=== PATIENT | female | born 1995 ===

== ENCOUNTER 2016-12-06 19:29 | Emergency (ER) | payer MEDICAID, OTHER ==
[2016-12-06 19:36] VITALS: BP 115/62; PULSE 73; RESP 18; TEMP 98; O2SAT 99
[2016-12-06] MEDS ORDERED: TDAP Vaccine 0.5 mL Syr IM ONE (19:41)
--- NOTE | 2016-12-06 19:55 | ED PDOC ---
Lower Extremity Pain/Injury Time Seen by Provider: 12/06/16 19:35 Chief Complaint (Nursing): Lower Extremity Problem/Injury Chief Complaint (Provider): Lower Extremity Problem/Injury History Per: Patient History/Exam Limitations: no limitations Onset/Duration Of Symptoms: Days (2x months) Current Symptoms Are (Timing): Still Present Severity: Moderate Additional Complaint(s): 21 year old female with no pertinent medical history presents to the ED with complaints of right lower extremity injury. She reports that 2x months she stepped on broken glassware at her home, and she now has pain in her right foot in the area where the foreign body is. She denies having any fevers and chills. Patient's tetanus vaccination is not up to date. PMD: not provided - Ankle/Foot Description Of Injury: Other (patient stepped on broken glass) Past Medical History Reviewed: Historical Data, Nursing Documentation, Vital Signs Vital Signs: Last Vital Signs Temp 98 F 12/06/16 19:35 Pulse 73 12/06/16 19:35 Resp 18 12/06/16 19:35 BP 115/62 12/06/16 19:35 Pulse Ox 99 12/06/16 19:35 - Medical History PMH: No Chronic Diseases - Family History Family History: States: No Known Family Hx - Social History Alcohol: None Drugs: Denies - Immunization History Hx Tetanus Toxoid Vaccination: No - Home Medications Home Medications: Ambulatory Orders Medication Instructions Recorded Cyclobenzaprine [Cyclobenzaprine 10 mg PO BID #14 tab 05/06/16 HCl] Ibuprofen [Motrin] 400 mg PO Q6 #30 tab 05/06/16 - Allergies Allergies/Adverse Reactions: Allergies Allergy/AdvReac Type Severity Reaction Status Date / Time No Known Allergies Allergy Verified 12/05/14 16:40 Review of Systems ROS Statement: Except As Marked, All Systems Reviewed And Found Negative Constitutional: Negative for: Fever, Chills Musculoskeletal: Positive for: Foot Pain (right foot pain) Physical Exam - Reviewed Nursing Documentation Reviewed: Yes Vital Signs Reviewed: Yes - Physical Exam Appears: Positive for: Well, Non-toxic, No Acute Distress Head Exam: Positive for: ATRAUMATIC, NORMOCEPHALIC Skin: Positive for: Normal Color, Warm, Dry Cardiovascular/Chest: Positive for: Regular Rate, Rhythm Respiratory: Positive for: Normal Breath Sounds. Negative for: Respiratory Distress Extremity: Positive for: Normal ROM, Other (1cm in diameter hardened region on plantar surface and lateral aspect on right foot. no surrounding erythema, no signs of infection) Neurologic/Psych: Positive for: Alert, Oriented (3x) - ECG O2 Sat by Pulse Oximetry: 99 (RA) Pulse Ox Interpretation: Normal - Progress ED Course And Treament: xry of foot: no foreign object body; no fx of foot noted Medical Decision Making Medical Decision Makin:35 Initial impression: 21 year old female with right foot pain. Initial impression: * boostrix inj .5ml IM * XRay foot right 3 views * reevaluation Scribe Attestation: Documented by Magda Mccartney, acting as a scribe for Pacheco Olivera PA-C. Provider Scribe Attestation: All medical record entries made by the Scribe were at my direction and personally dictated by me. I have reviewed the chart and agree that the record accurately reflects my personal performance of the history, physical exam, medical decision making, and the department course for this patient. I have also personally directed, reviewed, and agree with the discharge instructions and disposition. Disposition - Clinical Impression Clinical Impression: Callus - Patient ED Disposition Is Patient to be Admitted: No - Disposition Referrals: Podiatry Clinic [Outside] Disposition: Routine/Home Disposition Time: 20:58 Condition: FAIR Instructions: Foot Contusion (ED)
--- NOTE | 2016-12-07 10:21 | RAD ---
PROCEDURE: Right Foot Radiographs. HISTORY: R/O FOREIGN BODY COMPARISON: None. FINDINGS: BONES: Normal. No fracture. JOINTS: Normal. SOFT TISSUES: Normal. OTHER FINDINGS: Possible small laceration of the plantar aspect of the forefoot. IMPRESSION: Normal right foot radiographs. No radiopaque foreign body identified. Direct visualization recommended.
== END 2016-12-06 21:17 | disposition home or self-care (01) ==
LOC: H.ER 19:29
DX: L84 Corns and callosities (principal)

== ENCOUNTER 2017-03-28 14:25 | Emergency (ER) | payer MEDICAID ==
[2017-03-28 14:35] VITALS: BP 116/74; PULSE 84; RESP 16; TEMP 98.4; O2SAT 100
--- NOTE | 2017-03-28 15:17 | ED PDOC ---
Lower Extremity Pain/Injury Time Seen by Provider: 03/28/17 15:01 Chief Complaint (Nursing): Lower Extremity Problem/Injury Chief Complaint (Provider): foot pain History Per: Patient Additional Complaint(s): 21-year-old female presents with pain to right foot ongoing for several months. Patient is not sure if she has foreign body to bottom of foot. Patient denies fever or chills, she denies any drainage from the affected area. Past Medical History Reviewed: Historical Data, Nursing Documentation, Vital Signs Vital Signs: Last Vital Signs Temp 98.4 F 03/28/17 14:30 Pulse 84 03/28/17 14:30 Resp 16 03/28/17 14:30 BP 116/74 03/28/17 14:30 Pulse Ox 100 03/28/17 14:30 - Medical History PMH: No Chronic Diseases - Surgical History Surgical History: No Surg Hx - Family History Family History: States: No Known Family Hx - Living Arrangements Living Arrangements: With Family - Social History Current smoker - smoking cessation education provided: Yes Alcohol: Social Drugs: Cannabis - Home Medications Home Medications: Ambulatory Orders Medication Instructions Recorded Cyclobenzaprine [Cyclobenzaprine 10 mg PO BID #14 tab 05/06/16 HCl] Ibuprofen [Motrin] 400 mg PO Q6 #30 tab 05/06/16 - Allergies Allergies/Adverse Reactions: Allergies Allergy/AdvReac Type Severity Reaction Status Date / Time No Known Allergies Allergy Verified 12/05/14 16:40 Wells Criteria for PE - Wells Criteria for Pulmonary Embolism Clinical Signs and Symptoms of DVT: No P.E is #1 Diagnosis, or Equally Likely: No Heart Rate >100: No Immobilization at least 3 days;Surgery previous 4 weeks: No Previous, objectively diagnosed PE or DVT: No Hemoptysis: No Malignancy w/treatment within 6 months, or palliative: No Total Score: 0 Review of Systems ROS Statement: Except As Marked, All Systems Reviewed And Found Negative Constitutional: Negative for: Fever Musculoskeletal: Positive for: Other (right plantar pain for several months) Physical Exam - Reviewed Nursing Documentation Reviewed: Yes Vital Signs Reviewed: Yes - Physical Exam Appears: Positive for: Well, Non-toxic, No Acute Distress Skin: Negative for: Rash Eye Exam: Positive for: Normal appearance Extremity: Positive for: Other (Multiple calluses noted to plantar aspect of right foot, tenderness to palpation overlying area calloused skin, no palpable foreign body, no cellulitis or wound infection, normal distal sensation) Neurologic/Psych: Positive for: Alert, Oriented - ECG O2 Sat by Pulse Oximetry: 100 Pulse Ox Interpretation: Normal - Other Rad Right foot x-ray X-Ray: Interpreted by Me, Viewed By Me X-Ray Interpretation: no fx, no dis, NAP Medical Decision Making Medical Decision Makin21 year old with right foot pain for several months Plan: X-ray right foot Patient is aware of x-ray results. Patient was referred to podiatry clinic for follow-up. Disposition - Clinical Impression Clinical Impression: Callus of foot - Patient ED Disposition Is Patient to be Admitted: No Counseled Patient/Family Regarding: Studies Performed, Diagnosis, Need For Followup - Disposition Referrals: Podiatry Clinic [Outside] Disposition: Routine/Home Disposition Time: 17:01 Condition: STABLE Additional Instructions: Take [id number] Tylenol or Motrin for pain as needed. Call podiatry clinic to arrange for follow-up visit. Instructions: Foot Sprain (ED) Forms: [employer] (Kyrgyz)
--- NOTE | 2017-03-28 16:11 | RAD ---
PROCEDURE: Right Foot Radiographs. HISTORY: plantar pain, ? FB COMPARISON: Right foot radiographs performed 12/06/16 FINDINGS: BONES: No acute displaced fracture. JOINTS: No dislocation. SOFT TISSUES: Unremarkable. No evidence of radiopaque foreign body. OTHER FINDINGS: None. IMPRESSION: No acute displaced fracture, dislocation, or significant joint effusion identified. If symptoms persist, or if there is continued clinical concern, x-ray follow-up in 7-10 days should be considered.
== END 2017-03-28 17:29 | disposition home or self-care (01) ==
LOC: H.ER 14:25
DX: L84 Corns and callosities (principal)

== ENCOUNTER 2017-04-18 23:48 | Emergency (ER) | payer MEDICAID, OTHER ==
[2017-04-19 00:33] VITALS: BMI 29.7
[2017-04-19 00:35] VITALS: BP 125/81; PULSE 115; RESP 16; TEMP 101.8; O2SAT 99
[2017-04-19] MEDS ORDERED: cefTRIAXone (Rocephin) 250 mg Inj IM STA (01:09)
[2017-04-19] MEDS ORDERED: Dexamethasone 4 mg/1 ml ONE (01:26)
[2017-04-19] MEDS ORDERED: cefTRIAXone (Rocephin) 250 mg Inj ONE (01:27)
[2017-04-19] MEDS ORDERED: Sterile Water 10 ML IV ONE (01:27)
--- NOTE | 2017-04-19 02:10 | ED PDOC ---
HPI: General Adult Time Seen by Provider: 04/19/17 00:39 Chief Complaint (Nursing): ENT Problem Chief Complaint (Provider): Sore Throat History Per: Patient History/Exam Limitations: no limitations Onset/Duration Of Symptoms: Days (x2) Have you had recent travel within the past 21 days to any of the following countries: [place], [place], [place] or [place]?: No Additional Complaint(s): 21 year old female presents to ED with complaints of sore throat x2 days and has a history of recurrent strep pharyngitis. (+) fever, malaise, and pain with swallowing. (-) vomiting or diarrhea. Patient confirms that current symptoms are similar to previous presentations that were diagnosed as strep pharyngitis. Notes that she took Tylenol with no relief of symptoms. PCP: Elsa Past Medical History Reviewed: Historical Data, Nursing Documentation, Vital Signs Vital Signs: Last Vital Signs Temp 101.8 F H 04/19/17 00:33 Pulse 115 H 04/19/17 00:33 Resp 16 04/19/17 00:33 BP 125/81 04/19/17 00:33 Pulse Ox 99 04/19/17 00:33 - Medical History Other PMH: strep pharyngitis (recurrent) - Surgical History Surgical History: No Surg Hx - Family History Family History: States: No Known Family Hx - Living Arrangements Living Arrangements: With Family - Immunization History Hx Tetanus Toxoid Vaccination: No - Home Medications Home Medications: Ambulatory Orders Medication Instructions Recorded Cyclobenzaprine [Cyclobenzaprine 10 mg PO BID #14 tab 05/06/16 HCl] Ibuprofen [Motrin] 400 mg PO Q6 #30 tab 05/06/16 Amoxicillin/Clavulanate [Augmentin 1 tab PO BID #14 tab 04/19/17 875 MG-125 MG] - Allergies Allergies/Adverse Reactions: Allergies Allergy/AdvReac Type Severity Reaction Status Date / Time No Known Allergies Allergy Verified 04/19/17 00:33 Review of Systems ROS Statement: Except As Marked, All Systems Reviewed And Found Negative Constitutional: Positive for: Fever, Malaise ENT: Positive for: Throat Pain, Other ((+) pain with swallowing) Gastrointestinal: Negative for: Vomiting, Diarrhea Physical Exam - Reviewed Nursing Documentation Reviewed: Yes Vital Signs Reviewed: Yes - Physical Exam Appears: Positive for: Non-toxic, No Acute Distress Skin: Positive for: Normal Color, Warm, Dry Eye Exam: Positive for: EOMI, Normal appearance, PERRL ENT: Positive for: Tonsillar Exudate, Other (bilateral 3+ enlarged tonsils). Negative for: Normal ENT Inspection Neck: Positive for: Normal, Painless ROM, Supple Cardiovascular/Chest: Positive for: Regular Rate, Rhythm Respiratory: Positive for: Normal Breath Sounds. Negative for: Respiratory Distress Gastrointestinal/Abdominal: Positive for: Normal Exam, Soft. Negative for: Tenderness Back: Positive for: Normal Inspection Extremity: Positive for: Normal ROM. Negative for: Deformity Lymphatic: Positive for: Adenopathy (cervical adenopathy) Neurologic/Psych: Positive for: Alert, Oriented. Negative for: Motor/Sensory Deficits - ECG O2 Sat by Pulse Oximetry: 99 (RA) Pulse Ox Interpretation: Normal Medical Decision Making Medical Decision Makin Initial impression: clinical strep pharyngitis Initial plan: * Dexamethazone 10mg IM * Rocephin 500mg IM * Re-eval 0200 Patient is stable for discharge home. Dx: strep pharyngitis Patient will follow up with [facility], as she is a newly enrolled patient. Patient will be discharged with a prescription for Augmentin. Condition: stable Scribe Attestation: Documented by Betty Avila acting as a scribe for Jerry Tipton MD. Scribe Attestation: All medical record entries made by the Scribe were at my direction and personally dictated by me. I have reviewed the chart and agree that the record accurately reflects my personal performance of the history, physical exam, medical decision making, and the department course for this patient. I have also personally directed, reviewed, and agree with the discharge instructions and disposition. Disposition - Clinical Impression Clinical Impression: Tonsillopharyngitis - Disposition Referrals: Obdulio Sen MD [Primary Care Provider] - Disposition: Routine/Home Disposition Time: 02:00 Condition: STABLE Prescriptions: Amoxicillin/Clavulanate [Augmentin 875 MG-125 MG] 1 tab PO BID #14 tab Instructions: Strep Throat (ED) Forms: [employer] (Belarusian) Print Language: TAJIK
== END 2017-04-19 02:03 | disposition home or self-care (01) ==
LOC: H.ER 23:48
DX: J02.0 Streptococcal pharyngitis (principal)
CPT/HCPCS: 96372; 99282; J0696; J1100

== ENCOUNTER 2017-04-21 14:39 | Emergency (ER) | payer OTHER ==
[2017-04-21 14:39] VITALS: BMI 29.7
[2017-04-21 15:27] VITALS: PULSE 83; RESP 17; O2SAT 100
--- NOTE | 2017-04-21 15:40 | ED PDOC ---
HPI: General Adult Time Seen by Provider: 04/21/17 14:41 Chief Complaint (Nursing): ENT Problem Chief Complaint (Provider): ENT Problem History Per: Patient Onset/Duration Of Symptoms: Days (x 1) Current Symptoms Are (Timing): Still Present Additional Complaint(s): Michell is a 21 year old female who presents to the Emergency Department complaining of swollen tonsils. Patient was in ED 3 days ago (April 18, 2017) for strep and was given injection with temporary relief, but is now complaining of pain. Patient was given a prescription for Augmentin, but admits to not picking it up yet. PMD: Provider TBD Past Medical History Reviewed: Historical Data, Nursing Documentation, Vital Signs Vital Signs: Last Vital Signs Temp Pulse 83 04/21/17 15:24 Resp 17 04/21/17 15:24 BP Pulse Ox 100 04/21/17 15:47 - Family History Family History: States: Unknown Family Hx - Immunization History Hx Tetanus Toxoid Vaccination: No - Home Medications Home Medications: Ambulatory Orders Medication Instructions Recorded Cyclobenzaprine [Cyclobenzaprine 10 mg PO BID #14 tab 05/06/16 HCl] Ibuprofen [Motrin] 400 mg PO Q6 #30 tab 05/06/16 Amoxicillin/Clavulanate [Augmentin 1 tab PO BID #14 tab 04/19/17 875 MG-125 MG] Docosanol [Abreva] 1 cre TP TID #1 cre 04/21/17 - Allergies Allergies/Adverse Reactions: Allergies Allergy/AdvReac Type Severity Reaction Status Date / Time No Known Allergies Allergy Verified 04/19/17 00:33 Review of Systems ROS Statement: Except As Marked, All Systems Reviewed And Found Negative ENT: Positive for: Throat Pain Physical Exam - Reviewed Nursing Documentation Reviewed: Yes Vital Signs Reviewed: Yes - Physical Exam Appears: Positive for: Well, Non-toxic Head Exam: Positive for: ATRAUMATIC, NORMAL INSPECTION, NORMOCEPHALIC Eye Exam: Positive for: Normal appearance ENT: Positive for: Tonsillar Swelling (Mild Edema Bilateral Tonsil), Other ( Uvula to midline; cold sore, right lower mouth). Negative for: Tonsillar Exudate Neck: Positive for: Supple Respiratory: Negative for: Respiratory Distress Extremity: Negative for: Deformity Neurologic/Psych: Positive for: Alert, Gait - ECG O2 Sat by Pulse Oximetry: 100 (RA) Pulse Ox Interpretation: Normal Medical Decision Making Medical Decision Making: Time: 15:39 Plan: - Abreva 2 gm Cream Upon provider evaluation patient is medically stable, and requires no further treatment in the ED at this time. Patient will be discharged with Rx for Abreva 2 gm Cream. Counseling was provided and all questions were answered regarding diagnosis and need for follow up with PCP. There is agreement to discharge plan. Return if symptoms persist or worsen. Disposition - Clinical Impression Clinical Impression: Strep pharyngitis, Cold sore - Patient ED Disposition Is Patient to be Admitted: No - Disposition Disposition: Routine/Home Disposition Time: 15:39 Condition: STABLE Additional Instructions: Please fill prescription for antibiotics. Prescriptions: Docosanol [Abreva] 1 cre TP TID #1 cre Instructions: Pharyngitis (ED) Forms: [employer] (Belarusian)
== END 2017-04-21 15:50 | disposition home or self-care (01) ==
LOC: H.ER 14:39
DX: J02.0 Streptococcal pharyngitis (principal); B00.1 Herpesviral vesicular dermatitis

== ENCOUNTER 2017-09-07 19:20 | Emergency (ER) | payer MEDICAID, OTHER ==
[2017-09-07 19:20] VITALS: BMI 29.7
[2017-09-07 19:33] VITALS: BP 111/74; PULSE 87; RESP 16; TEMP 98.1; O2SAT 100
--- NOTE | 2017-09-07 20:08 | ED PDOC ---
HPI: Abdomen Time Seen by Provider: 09/07/17 19:37 Chief Complaint (Nursing): Abdominal Pain History Per: Patient History/Exam Limitations: no limitations Onset/Duration Of Symptoms: Days Outside of [place] travel?: No Current Symptoms Are (Timing): Intermittent Episodes Additional Complaint(s): No PMHx p/w lower abodminal pain and VB, states she was late for this current period and then 2 days ago started having her usual cramping menstrual pain which is "Band-like" constriction of her lower abdomen with VB, but she states that the intensity is worse this time. States her friends and family were warning her of possible miscarriage, so she came to ER for eval. No lightheadeness, dizziness. States her breasts feel fish than normal as well. . Past Medical History Reviewed: Historical Data, Nursing Documentation, Vital Signs Vital Signs: Last Vital Signs Temp 98.1 F 09/07/17 19:30 Pulse 87 09/07/17 19:30 Resp 16 09/07/17 19:30 BP 111/74 09/07/17 19:30 Pulse Ox 100 09/07/17 20:09 - Medical History PMH: No Chronic Diseases - Family History Family History: States: Unknown Family Hx - Immunization History Hx Tetanus Toxoid Vaccination: No - Home Medications Home Medications: Ambulatory Orders Medication Instructions Recorded Cyclobenzaprine [Cyclobenzaprine 10 mg PO BID #14 tab 05/06/16 HCl] Ibuprofen [Motrin] 400 mg PO Q6 #30 tab 05/06/16 Amoxicillin/Clavulanate [Augmentin 1 tab PO BID #14 tab 04/19/17 875 MG-125 MG] Docosanol [Abreva] 1 cre TP TID #1 cre 04/21/17 Ibuprofen [Motrin Tab] 600 mg PO Q6 #30 tab 09/07/17 - Allergies Allergies/Adverse Reactions: Allergies Allergy/AdvReac Type Severity Reaction Status Date / Time No Known Allergies Allergy Verified 09/07/17 19:30 Review of Systems ROS Statement: Except As Marked, All Systems Reviewed And Found Negative Gastrointestinal: Positive for: Abdominal Pain Genitourinary Female: Positive for: Vaginal Bleeding Physical Exam - Reviewed Nursing Documentation Reviewed: Yes Vital Signs Reviewed: Yes - Physical Exam Appears: Positive for: Well, Non-toxic, No Acute Distress Head Exam: Positive for: ATRAUMATIC, NORMAL INSPECTION, NORMOCEPHALIC Skin: Positive for: Normal Color, Warm, DRY Eye Exam: Positive for: EOMI, Normal appearance, PERRL ENT: Positive for: Normal ENT Inspection Neck: Positive for: Normal, Painless ROM Cardiovascular/Chest: Positive for: Regular Rate, Rhythm Respiratory: Positive for: CNT, Normal Breath Sounds Gastrointestinal/Abdominal: Positive for: Normal Exam, Soft Back: Positive for: Normal Inspection Extremity: Positive for: Normal ROM Neurologic/Psych: Positive for: Alert, Oriented - ECG O2 Sat by Pulse Oximetry: 100 Pulse Ox Interpretation: Normal Medical Decision Making Medical Decision MakinPM A/P: No PMhx p/w lower abdominal pain and VB -patient most likely not , most likely suffering from DUB -will get serum hcg -will refer to outpatient [facility]ILWAYS ASSISTANT for further workup 2130 Upreg and betahcg neg, advised patient to f/u w/ [facility]ILWAYS ASSISTANT. Patient well appearing. Return precautions given. Disposition - Clinical Impression Clinical Impression: Dysfunctional uterine bleeding - Disposition [facility]errals: [facility] [Outside] Disposition: Routine/Home Disposition Time: 21:30 Condition: IMPROVED Additional Instructions: Please followup with a food service lead in 1 - 2 days. Prescriptions: Ibuprofen [Motrin Tab] 600 mg PO Q6 #30 tab Instructions: Absent or Irregular Periods Forms: [employer] (Maldivian)
== END 2017-09-07 21:51 | disposition home or self-care (01) ==
LOC: H.ER 19:20
DX: N93.8 Other specified abnormal uterine and vaginal bleeding (principal)

== ENCOUNTER 2017-10-29 07:59 | Emergency (ER) | payer MEDICAID ==
[2017-10-29 08:15] VITALS: RESP 16; BMI 29.5
[2017-10-29] MEDS ORDERED: Sodium Chloride 0.9% 1,000 ML IV STA (08:44)
[2017-10-29] MEDS ORDERED: Famotidine 20mg/50ml 20 MG/50 ML BAG IVPB STA (08:46)
[2017-10-29] MEDS ORDERED: Famotidine 20mg/50ml 20 MG/50 ML BAG IVPB ONE (08:48)
[2017-10-29 09:07] LABS: BASO % 0.4 % (0.0-2.0); EOS # 0.1 K/uL (0.0-0.7); EOS % 0.5 % (0.0-4.0); LYMPH # 2.5 K/uL (1.0-4.3); LYMPH % 19.8 % (20.0-40.0); MEAN CELL VOLUME 87.3 fl (81.0-99.0); MEAN CORPUSCULAR HEMOGLOBIN 30.1 pg (27.0-31.0); MEAN CORPUSCULAR HGB CONC 34.4 g/dL (33.0-37.0); MEAN PLATELET VOLUME 10.9 fl (7.2-11.7); MONO # 0.6 K/uL (0.0-0.8); MONO % 4.6 % (0.0-10.0); NEUT # 9.5 K/uL (1.8-7.0); NEUT % 74.7 % (50.0-75.0); NRBC % 0.1 % (0.0-0.0); RBC 4.67 Mil/uL (3.80-5.20); WHITE BLOOD COUNT 12.7 K/uL (4.8-10.8)
--- NOTE | 2017-10-29 09:09 | ED PDOC ---
HPI: Abdomen Time Seen by Provider: 10/29/17 08:33 Chief Complaint (Nursing): Abdominal Pain Chief Complaint (Provider): Epigastric Pain History Per: Patient History/Exam Limitations: no limitations Onset/Duration Of Symptoms: Hrs Outside of [place] travel?: No Current Symptoms Are (Timing): Still Present Location Of Pain/Discomfort: Epigastric Quality Of Discomfort: "Pain" Associated Symptoms: Nausea, Vomiting. denies: Diarrhea Additional Complaint(s): 22 y/o female presents to the ED with epigastric pain. Patient states she consumed a heavy amount of alcohol the night prior to ED arrival. She is complaining of nausea and vomiting since last night. Patient denies any diarrhea , hematochezia, or hematemesis. No PMHx PMD: none provided Past Medical History Reviewed: Historical Data, Nursing Documentation, Vital Signs Vital Signs: Last Vital Signs Temp 98 F 10/29/17 08:14 Pulse 77 10/29/17 08:14 Resp 16 10/29/17 08:14 BP 132/84 10/29/17 08:14 Pulse Ox 99 10/29/17 09:14 - Medical History PMH: No Chronic Diseases - Surgical History Surgical History: No Surg Hx - Family History Family History: States: Unknown Family Hx - Social History Alcohol: Social - Immunization History Hx Tetanus Toxoid Vaccination: No - Home Medications Home Medications: Ambulatory Orders Medication Instructions Recorded Cyclobenzaprine [Cyclobenzaprine 10 mg PO BID #14 tab 05/06/16 HCl] Ibuprofen [Motrin] 400 mg PO Q6 #30 tab 05/06/16 Amoxicillin/Clavulanate [Augmentin 1 tab PO BID #14 tab 04/19/17 875 MG-125 MG] Docosanol [Abreva] 1 cre TP TID #1 cre 04/21/17 Ibuprofen [Motrin Tab] 600 mg PO Q6 #30 tab 09/07/17 Famotidine [Pepcid] 20 mg PO Q12 #20 tab 10/29/17 Ondansetron [Zofran] 4 mg PO Q8H #10 tab 10/29/17 - Allergies Allergies/Adverse Reactions: Allergies Allergy/AdvReac Type Severity Reaction Status Date / Time No Known Allergies Allergy Verified 09/07/17 19:30 Review of Systems ROS Statement: Except As Marked, All Systems Reviewed And Found Negative Gastrointestinal: Positive for: Nausea, Vomiting, Abdominal Pain (epigastric area). Negative for: Diarrhea, Hematochezia, Hematemesis Physical Exam - Reviewed Nursing Documentation Reviewed: Yes Vital Signs Reviewed: Yes - Physical Exam Appears: Positive for: Non-toxic, No Acute Distress Head Exam: Positive for: ATRAUMATIC, NORMAL INSPECTION, NORMOCEPHALIC Skin: Positive for: Normal Color, Warm, Dry Eye Exam: Positive for: EOMI, Normal appearance, PERRL Cardiovascular/Chest: Positive for: Regular Rate, Rhythm. Negative for: Murmur Respiratory: Positive for: Normal Breath Sounds. Negative for: Respiratory Distress Gastrointestinal/Abdominal: Positive for: Tenderness (epigastric tenderness) Neurologic/Psych: Positive for: Alert, Oriented (x3) - Laboratory Results Result Diagrams: 10/29/17 09:03 10/29/17 09:03 - ECG O2 Sat by Pulse Oximetry: 99 (RA) Pulse Ox Interpretation: Normal - Progress Re-evaluation Time: 10:59 Condition: Improved (Tolerating PO) Medical Decision Making Medical Decision Making: Time: 08:14 Impression: to be completed later per provider Initial Plan: * CMP * Lipase Stat * Test * Famotidine 20 mg in 50 ml IVPB * IV Fluids * Zofran 4 mg PO Scribe Attestation: Documented by Juan Barrow acting as a scribe for Luis Carlos Flood MD. Scribe Attestation: All medical record entries made by the Scribe were at my direction and personally dictated by me. I have reviewed the chart and agree that the record accurately reflects my personal performance of the history, physical exam, medical decision making, and the department course for this patient. I have also personally directed, reviewed, and agree with the discharge instructions and disposition. Disposition - Clinical Impression Clinical Impression: Gastritis - Patient ED Disposition Is Patient to be Admitted: No Counseled Patient/Family Regarding: Studies Performed, Diagnosis, Need For Followup, Rx Given - Disposition Referrals: at [facility] [Outside] Disposition: Routine/Home Disposition Time: 11:00 Condition: FAIR Prescriptions: Famotidine [Pepcid] 20 mg PO Q12 #20 tab Ondansetron [Zofran] 4 mg PO Q8H #10 tab Instructions: Gastritis Forms: [employer] ([place] Islander)
[2017-10-29 09:20] LABS: ALB/GLOB RATIO 1.4 (1.0-2.1); ALBUMIN 4.7 g/dL (3.5-5.0); ALT/SGPT 31 U/L (9-52); AST/SGOT 23 U/L (14-36); BLOOD UREA NITROGEN 7 mg/dl (7-17); CALCIUM 9.8 mg/dL (8.4-10.2); GFR AFRICAN-AMERICAN > 60; GFR NON-AFRICAN AMERICAN > 60; LIPASE 97 U/L (23-300)
[2017-10-29 11:16] VITALS: BP 143/76; PULSE 102; TEMP 98.2; O2SAT 98
== END 2017-10-29 11:19 | disposition home or self-care (01) ==
LOC: H.ER 07:59
DX: K29.70 Gastritis, unspecified, without bleeding (principal)
CPT/HCPCS: 80053; 81025; 83690; 85025; 96365; 99283; J7040

== ENCOUNTER 2017-11-21 01:30 | Emergency (ER) | payer MEDICAID ==
[2017-11-21 01:30] VITALS: BMI 29.5
[2017-11-21 01:50] VITALS: RESP 18
[2017-11-21 02:27] LABS: SQUAMOUS EPITHIAL 3 /hpf (0-5); URINE BACTERIA MANY (<OCC); URINE BILIRUBIN NEGATIVE (NEGATIVE); URINE BLOOD LARGE (NEGATIVE); URINE CLARITY TURBID (Clear); URINE COLOR YELLOW (YELLOW); URINE GLUCOSE (UA) NEG (Normal); URINE LEUKOCYTE ESTERASE LARGE Leu/uL (Negative); URINE PROTEIN >=500 mg/dL (NEGATIVE); URINE UROBILINOGEN 0.2-1.0 mg/dL (0.2-1.0); WBC CLUMPS MANY /hpf
[2017-11-21] MEDS ORDERED: Sodium Chloride 0.9% 1,000 ML IV STA (02:39)
--- NOTE | 2017-11-21 02:59 | ED PDOC ---
HPI: Abdomen Time Seen by Provider: 11/21/17 01:40 Chief Complaint (Nursing): Abdominal Pain Chief Complaint (Provider): Abdominal Pain History Per: Patient History/Exam Limitations: no limitations Onset/Duration Of Symptoms: Days (x2) Outside of [place] travel?: No Current Symptoms Are (Timing): Still Present Location Of Pain/Discomfort: LUQ, LLQ Associated Symptoms: denies: Fever, Vomiting, Diarrhea Additional Complaint(s): 22 year old female presents to ED with complaints of abdominal pain x2 days and has no past medical history. Patient localizes pain to the left side of her abdomen as well as the left flank. (-) fever, vomiting, or diarrhea. + urinary urgency and frequency PCP: None Past Medical History Reviewed: Historical Data, Nursing Documentation, Vital Signs Vital Signs: Last Vital Signs Temp 97.6 F 11/21/17 09:28 Pulse 82 11/21/17 09:28 Resp 18 11/21/17 09:28 BP 113/71 11/21/17 09:28 Pulse Ox 100 11/21/17 12:52 - Medical History PMH: No Chronic Diseases - Surgical History Other surgeries: Right axilla abscess I&D - Family History Family History: States: Unknown Family Hx - Living Arrangements Living Arrangements: With Family - Social History Current smoker - smoking cessation education provided: Yes Ex-Smoker (has not smoked in the last 12 months): No Alcohol: Social Drugs: Denies - Immunization History Hx Tetanus Toxoid Vaccination: No - Home Medications Home Medications: Ambulatory Orders Medication Instructions Recorded Cyclobenzaprine [Cyclobenzaprine 10 mg PO BID #14 tab 05/06/16 HCl] Ibuprofen [Motrin] 400 mg PO Q6 #30 tab 05/06/16 Amoxicillin/Clavulanate [Augmentin 1 tab PO BID #14 tab 04/19/17 875 MG-125 MG] Docosanol [Abreva] 1 cre TP TID #1 cre 04/21/17 Ibuprofen [Motrin Tab] 600 mg PO Q6 #30 tab 09/07/17 Famotidine [Pepcid] 20 mg PO Q12 #20 tab 10/29/17 Ondansetron [Zofran] 4 mg PO Q8H #10 tab 10/29/17 Ciprofloxacin [Cipro] 500 mg PO BID #14 tab 11/21/17 Naproxen [Naprosyn] 500 mg PO BID PRN #14 tablet 11/21/17 - Allergies Allergies/Adverse Reactions: Allergies Allergy/AdvReac Type Severity Reaction Status Date / Time No Known Allergies Allergy Verified 09/07/17 19:30 Review of Systems ROS Statement: Except As Marked, All Systems Reviewed And Found Negative Constitutional: Negative for: Fever Gastrointestinal: Positive for: Abdominal Pain. Negative for: Vomiting, Diarrhea Musculoskeletal: Positive for: Back Pain ((+) left flank pain) Physical Exam - Reviewed Nursing Documentation Reviewed: Yes Vital Signs Reviewed: Yes - Physical Exam Appears: Positive for: Non-toxic, No Acute Distress Skin: Positive for: Normal Color, Warm, Dry Eye Exam: Positive for: Normal appearance Cardiovascular/Chest: Positive for: Regular Rate, Rhythm. Negative for: Murmur Respiratory: Positive for: Normal Breath Sounds. Negative for: Respiratory Distress Gastrointestinal/Abdominal: Positive for: Normal Exam, Soft. Negative for: Tenderness Pelvic Exam: Positive for: Tender Adnexa (mild left adnexal tenderness) Back: Positive for: L CVA Tenderness (mild). Negative for: Normal Inspection, R CVA Tenderness Extremity: Positive for: Normal ROM. Negative for: Deformity Neurologic/Psych: Positive for: Alert, Oriented. Negative for: Motor/Sensory Deficits - Laboratory Results Result Diagrams: 11/21/17 03:02 11/21/17 03:02 - ECG O2 Sat by Pulse Oximetry: 100 (RA) Pulse Ox Interpretation: Normal Medical Decision Making Medical Decision Makin Initial impression: UTI Initial plan: * Urine C&S * UA 0245 UDip indicative of UTI. * Labs * NS IV * Zofran Inj 4mg PO * Re-eval 0614 Labs indicative of UTI. Patient notes slight improvement in pain but states pain is still present. * CTA A/P 0700 Patient signed out to Dr. Morris pending CT. Scribe Attestation: Documented by Betty Avila, acting as a scribe for Earl Horne MD. Provider Scribe Attestation: All medical record entries made by the Scribe were at my direction and personally dictated by me. I have reviewed the chart and agree that the record accurately reflects my personal performance of the history, physical exam, medical decision making, and the department course for this patient. I have also personally directed, reviewed, and agree with the discharge instructions and disposition. Disposition - Clinical Impression Clinical Impression: UTI (urinary tract infection), Ovarian cyst - Patient ED Disposition Is Patient to be Admitted: Transfer of Care - Disposition [facility]] Obdulio Sen MD [Staff Provider] - Disposition: Transfer of Care Disposition Time: 07:00 Condition: STABLE Additional Instructions: follow up with your primary doctor in 1-2 days for reevaluation return to the ED with any worsening or concerning symptoms Prescriptions: Ciprofloxacin [Cipro] 500 mg PO BID #14 tab Naproxen [Naprosyn] 500 mg PO BID PRN #14 tablet PRN Reason: Pain, Moderate (4-7) Instructions: Ovarian Cysts, Urinary Tract Infection, Adult (DC) Forms: [employer] (French) Patient Signed Over To: Vlad Morris III Handoff Comments: pending CT
[2017-11-21 03:08] LABS: BASO % 0.1 % (0.0-2.0); EOS # 0.2 K/uL (0.0-0.7); EOS % 1.6 % (0.0-4.0); HEMOGLOBIN 14.3 g/dL (12.0-16.0); LYMPH # 2.5 K/uL (1.0-4.3); MEAN CORPUSCULAR HGB CONC 34.5 g/dL (33.0-37.0); MEAN PLATELET VOLUME 10.4 fl (7.2-11.7); MONO # 1.1 K/uL (0.0-0.8); MONO % 7.2 % (0.0-10.0); NEUT # 10.8 K/uL (1.8-7.0); NEUT % 74.1 % (50.0-75.0); NRBC % 0.1 % (0.0-0.0); RBC 4.77 Mil/uL (3.80-5.20); RED CELL DISTRIBUTION WIDTH 13.3 % (11.5-14.5); WHITE BLOOD COUNT 14.6 K/uL (4.8-10.8)
[2017-11-21 03:51] LABS: ALB/GLOB RATIO 1.2 (1.0-2.1); ALBUMIN 4.3 g/dL (3.5-5.0); ALT/SGPT 21 U/L (9-52); AST/SGOT 21 U/L (14-36); BLOOD UREA NITROGEN 9 mg/dl (7-17); CALCIUM 9.6 mg/dL (8.4-10.2); GFR AFRICAN-AMERICAN > 60; GFR NON-AFRICAN AMERICAN > 60
[2017-11-21] MEDS ORDERED: Iohexol 300 100 ML IJ ONE (06:46)
[2017-11-21] MEDS ORDERED: Sodium Chloride 0.9% 50 ML IV ONE (06:46)
--- NOTE | 2017-11-21 07:11 | ED PDOC ---
- Laboratory Results Result Diagrams: 11/21/17 03:02 11/21/17 03:02 - ECG O2 Sat by Pulse Oximetry: 100 (RA) Pulse Ox Interpretation: Normal Medical Decision Making Medical Decision Making: Patient signed out to me by Dr. Horne at 07:00, pending CT reading. COMPARISON: No relevant prior studies available. FINDINGS: Lower thorax: No acute findings. ABDOMEN: Liver: Normal. No mass. Gallbladder and bile ducts: Normal. No calcified stones. No ductal dilation. Pancreas: Normal. No ductal dilation. Spleen: Normal. No splenomegaly. Adrenals: Normal. No mass. Kidneys and ureters: Normal. No hydronephrosis. Stomach and bowel: Normal. No obstruction. No mucosal thickening. Appendix: Normal appendix. PELVIS: Bladder: Unremarkable as visualized. Reproductive: Left adnexal 2.4 x 1.7 cm cyst. ABDOMEN and PELVIS: Intraperitoneal space: Small volume of pelvic fluid. Bones/joints: No acute fracture. No dislocation. Soft tissues: Unremarkable. Vasculature: Normal. No abdominal aortic aneurysm. Lymph nodes: Normal. No enlarged lymph nodes. IMPRESSION: Small volume of pelvic fluid. Otherwise, no definite acute abdominal pathologic finding. Thank you for allowing us to participate in the care of your patient. Dictated and Authenticated by: Hermelindo Goldberg MD 11/21/2017 8:03 AM Eastern Time ([place] & [place] Time: 08:!9 Pelvis/Transvaginal Ultrasound Accession No. : [id number] Patient Name / ID : SHAI HERNÁNDEZ / [id number] Exam Date : 11/21/2017 10:16:24 ( Approved ) Study Comment : Sex / Age : F / 22Y Creator : Tyrell Koch MD Dictator : Respiratory Manager : [employer]wood Scarfer Tender : Tyrell Koch MD Approver2 : Report Date : 11/21/2017 12:20:32 My Comment : PROCEDURE: Pelvic ultrasound dated 11/21/2017. HISTORY: Left ovarian cyst, pelvic pain/fluid COMPARISON: Comparison made with concurrent CT scan abdomen pelvis TECHNIQUE: Transabdominal/transvaginal sonographic evaluation of pelvis performed. FINDINGS: Uterus is anteverted measuring approximately 8.0 x 2.7 x 4.0 cm. Endometrial stripe measures approximately 9 mm. There is a small amount of free fluid seen in the cul de sac. Right ovary measures approximately 3.0 x 1.9 x2 0.5 cm. Right ovary exhibits arterial flow. Left ovary measures approximately 3.4 x 2.0 x 3.0 cm. There is a small complex left ovarian cyst which measures approximately 2.0 x 1.1 x 2.0 cm. Left ovary exhibits arterial flow IMPRESSION: Small complex left ovarian cyst with small amount of free fluid in the cul de sac. Patient received Rocephin 1gm DC w PO Abx and followup culture Rec followup w [facility] 3-4 weeks for repeat US. Discussed w patient all results and recommendations. Has appt tomorrow w an unknown [facility] for first visit, given copy of US report to bring to [facility] for continuity of care. Scribe Attestation: Documented by Broderick Paulino, acting as a scribe for Vlad Morris III, DO Provider Scribe Attestation: All medical record entries made by the Scribe were at my direction and personally dictated by me. I have reviewed the chart and agree that the record accurately reflects my personal performance of the history, physical exam, medical decision making, and the department course for this patient. I have also personally directed, reviewed, and agree with the discharge instructions and disposition. Disposition - Clinical Impression Clinical Impression: UTI (urinary tract infection), Ovarian cyst - POA Present On Arrival: None - Disposition [facility]] Obdulio Sen MD [Staff Provider] - Disposition: Routine/Home Disposition Time: 11:30 Condition: FAIR Additional Instructions: follow up with your primary doctor in 1-2 days for reevaluation return to the ED with any worsening or concerning symptoms Prescriptions: Ciprofloxacin [Cipro] 500 mg PO BID #14 tab Naproxen [Naprosyn] 500 mg PO BID PRN #14 tablet PRN Reason: Pain, Moderate (4-7) Instructions: Ovarian Cysts, Urinary Tract Infection, Adult (DC) Forms: [employer] (Egyptian)
[2017-11-21 09:29] VITALS: BP 113/71; PULSE 82; TEMP 97.6
--- NOTE | 2017-11-21 10:29 | CT ---
PROCEDURE: CT Abdomen and Pelvis with contrast HISTORY: Flank pain COMPARISON: No prior study available comparison TECHNIQUE: Contrast dose: Radiation dose: Total exam DLP = 444.64 mGy-cm. This CT exam was performed using one or more of the following dose reduction techniques: Automated exposure control, adjustment of the mA and/or kV according to patient size, and/or use of iterative reconstruction technique. FINDINGS: LOWER THORAX: Lung bases clear. No infiltrate effusion or basilar pneumothorax. Heart size within range of normal. No significant pericardial effusion. There is small hiatal hernia. LIVER: Liver exhibits normal size measuring approximately 16.7 cm in CC dimension. Minimal fatty hepatic infiltration. No obvious hepatic mass collection or calcification. GALLBLADDER AND BILE DUCTS: Unremarkable. PANCREAS: Unremarkable. No gross lesion or ductal dilatation. SPLEEN: Unremarkable. ADRENALS: No adrenal lesions. KIDNEYS AND URETERS: Kidneys demonstrate symmetric nephrograms. No evidence of nephrolithiasis or hydronephrosis. VASCULATURE: Unremarkable. No aortic aneurysm. BOWEL: Evaluation of the bowel is limited due to the lack of oral contrast material. Stomach is incompletely distended which in part accounts for thick-walled appearance. Visualized loops of small bowel exhibit normal contour and caliber. No evidence of acute mechanical small bowel obstruction. Stool and air seen throughout the large bowel. Multiple colonic diverticular and noted along the sigmoid colon however no definitive radiographic evidence to suggest acute diverticulitis. APPENDIX: Normal-appearing appendix of best seen on axial image number [id number]. PERITONEUM: Small amount of free fluid in cul-de-sac as above. No evidence of free intraperitoneal air. LYMPH NODES: Unremarkable. No enlarged lymph nodes. BLADDER: Urinary bladder is physiologically distended. No evidence of intraluminal urinary bladder calculi. REPRODUCTIVE: Small approximately 2.7 x 1.7 cm involuting left ovarian cyst associate with a small amount of free fluid in the cul de sac. There is a small amount of fluid within the cul de sac. BONES: Vertebral bodies exhibit normal stature. No evidence of acute compression fractures no retropulsed fragments. Mild levoscoliosis possibly due to some side bending or spasm. OTHER FINDINGS: None. IMPRESSION: Small approximately 2.7 x 1.7 cm involuting left adnexal cyst with a small amount of free fluid in the cul de sac. Diverticulosis without radiographic evidence acute diverticulitis.
--- NOTE | 2017-11-21 12:41 | US ---
PROCEDURE: Pelvic ultrasound dated 11/21/2017. HISTORY: Left ovarian cyst, pelvic pain/fluid COMPARISON: Comparison made with concurrent CT scan abdomen pelvis TECHNIQUE: Transabdominal/transvaginal sonographic evaluation of pelvis performed. FINDINGS: Uterus is anteverted measuring approximately 8.0 x 2.7 x 4.0 cm. Endometrial stripe measures approximately 9 mm. There is a small amount of free fluid seen in the cul de sac. Right ovary measures approximately 3.0 x 1.9 x2 0.5 cm. Right ovary exhibits arterial flow. Left ovary measures approximately 3.4 x 2.0 x 3.0 cm. There is a small complex left ovarian cyst which measures approximately 2.0 x 1.1 x 2.0 cm. Left ovary exhibits arterial flow IMPRESSION: Small complex left ovarian cyst with small amount of free fluid in the cul de sac.
[2017-11-21 12:50] VITALS: O2SAT 100
== END 2017-11-21 12:59 | disposition home or self-care (01) ==
LOC: H.ER 01:30
DX: N39.0 Urinary tract infection, site not specified (principal); N83.202 Unspecified ovarian cyst, left side
CPT/HCPCS: 74177; 76830; 76856; 80053; 81003; 81025; 85025; 87086; 87181; 96361; 96365; 96375; 99283; J0696; J1885; J7030; Q9967

== ENCOUNTER 2018-04-28 01:12 | Emergency (ER) | payer MEDICAID ==
[2018-04-28 01:12] VITALS: BMI 29.5
[2018-04-28 01:22] VITALS: O2SAT 100
--- NOTE | 2018-04-28 02:13 | ED PDOC ---
Upper Extremity Pain/Injury Time Seen by Provider: 04/28/18 01:21 Chief Complaint (Nursing): Upper Extremity Problem/Injury Chief Complaint (Provider): right hand pain History Per: Patient History/Exam Limitations: no limitations Onset/Duration Of Symptoms: Days Current Symptoms Are (Timing): Still Present Quality: Dull Severity: Moderate Pain Scale Rating Of: 7 Additional Complaint(s): 22 yo female with no medical problems presents for evaluation of right hand pain after punching a wall a few hours ago. Pt did not take anything for pain. No numbness/tingling. Past Medical History Reviewed: Historical Data, Nursing Documentation, Vital Signs Vital Signs: Last Vital Signs Temp 97.9 F 04/28/18 01:17 Pulse 103 H 04/28/18 01:17 Resp 16 04/28/18 01:17 BP 121/87 04/28/18 01:17 Pulse Ox 100 04/28/18 01:17 - Medical History PMH: No Chronic Diseases - Surgical History Surgical History: No Surg Hx - Family History Family History: States: Unknown Family Hx - Living Arrangements Living Arrangements: With Family - Social History Current smoker - smoking cessation education provided: No - Immunization History Hx Tetanus Toxoid Vaccination: No - Home Medications Home Medications: Ambulatory Orders Medication Instructions Recorded Cyclobenzaprine [Cyclobenzaprine 10 mg PO BID #14 tab 05/06/16 HCl] Ibuprofen [Motrin] 400 mg PO Q6 #30 tab 05/06/16 Amoxicillin/Clavulanate [Augmentin 1 tab PO BID #14 tab 04/19/17 875 MG-125 MG] Docosanol [Abreva] 1 cre TP TID #1 cre 04/21/17 Ibuprofen [Motrin Tab] 600 mg PO Q6 #30 tab 09/07/17 Famotidine [Pepcid] 20 mg PO Q12 #20 tab 10/29/17 Ondansetron [Zofran] 4 mg PO Q8H #10 tab 10/29/17 Ciprofloxacin [Cipro] 500 mg PO BID #14 tab 11/21/17 Naproxen [Naprosyn] 500 mg PO BID PRN #14 tablet 11/21/17 - Allergies Allergies/Adverse Reactions: Allergies Allergy/AdvReac Type Severity Reaction Status Date / Time No Known Allergies Allergy Verified 09/07/17 19:30 Review of Systems ROS Statement: Except As Marked, All Systems Reviewed And Found Negative Constitutional: Negative for: Fever, Chills Musculoskeletal: Positive for: Other ((+) right hand pain) Physical Exam - Reviewed Nursing Documentation Reviewed: Yes Vital Signs Reviewed: Yes - Physical Exam Appears: Positive for: Well, Non-toxic, No Acute Distress Head Exam: Positive for: ATRAUMATIC, NORMAL INSPECTION, NORMOCEPHALIC Skin: Positive for: Normal Color, Warm, DRY Eye Exam: Positive for: Normal appearance ENT: Positive for: Normal ENT Inspection Neck: Positive for: Normal Cardiovascular/Chest: Negative for: Bradycardia, Tachycardia Respiratory: Negative for: Accessory Muscle Use, Respiratory Distress Back: Positive for: Normal Inspection Extremity: Positive for: Normal ROM, Tenderness (4-5 metacarpals, right ), Other (Erythema of the posterior 4-5 metacarpals, no ecchymosis ). Negative for: Deformity, Swelling Neurologic/Psych: Positive for: Alert, Oriented - ECG O2 Sat by Pulse Oximetry: 100 Pulse Ox Interpretation: Normal Medical Decision Making Medical Decision Making: XR without acute fracture or dislocation Disposition - Clinical Impression Clinical Impression: Contusion of right hand - Patient ED Disposition Is Patient to be Admitted: No Counseled Patient/Family Regarding: Diagnosis, Need For Followup - Disposition Referrals: Cory Ojeda MD [Staff Provider] - Disposition: Routine/Home Disposition Time: 02:12 Condition: GOOD Additional Instructions: Ice, elevation, motrin for pain. Instructions: Contusion (DC) Forms: [employer] (Liberian)
[2018-04-28 02:52] VITALS: BP 104/65; PULSE 61; RESP 18; TEMP 98.1
--- NOTE | 2018-04-28 09:52 | RAD ---
PROCEDURE: Right Hand Radiographs. HISTORY: pain, punched wall COMPARISON: None. FINDINGS: BONES: Normal. No fracture. JOINTS: Normal. No osteoarthritic changes. SOFT TISSUES: Normal. OTHER FINDINGS: None. IMPRESSION: Normal right hand radiographs.
== END 2018-04-28 02:49 | disposition home or self-care (01) ==
LOC: H.ER 01:12
DX: S60.221A Contusion of right hand, initial encounter (principal); W22.09XA Striking against other stationary object, initial encounter; Y92.89 Other specified places as the place of occurrence of the external cause